=== PATIENT | female | born 1950 | race African-American/Black ===

== ENCOUNTER 2018-10-10 16:08 | Emergency (ER) | payer OTHER, MEDICAID ==
[~2018-10-10] VITALS: Ht 157.5 cm; Wt 57.0 kg
[2018-10-10 21:50] VITALS: BP 137/77
== END 2018-10-11 00:45 | disposition left against medical advice (07) ==
LOC: ER 16:08
DX: M79.605 Pain in left leg (principal); M79.89 Other specified soft tissue disorders; I10 Essential (primary) hypertension
CPT/HCPCS: 73610; 99283